=== PATIENT | female | born 2000 ===

== ENCOUNTER 2021-12-07 22:03 | Inpatient (IN) | payer BC ==
[2021-12-07] MEDS ORDERED: Carboprost Tromethamine 250 MCG/1 ML Amp IM PRN (23:10)
[2021-12-07] MEDS ORDERED: Terbutaline 1 MG/ML SDV SUBCUT PRN (23:10)
[2021-12-07] MEDS ORDERED: Water For Irrigation,Sterile 1,000 ML Container IRR PRN (23:10)
[2021-12-07] MEDS ORDERED: Tranexamic Acid 1,000 MG in Sodium Chloride 0.9% 100 ML IV PRN (23:10)
[2021-12-07] MEDS ORDERED: Lidocaine 1% 50 ML MDV INJECT PRN (23:10)
[2021-12-07] MEDS ORDERED: Ondansetron 4 MG/2 ML SDV IVPUSH PRN (23:10)
[2021-12-07] MEDS ORDERED: Butorphanol 1 MG/ML SDV IVPUSH PRN (23:10)
[2021-12-07] MEDS ORDERED: Methylergonovine 0.2 MG/1 ML Amp IM PRN (23:10)
[2021-12-07] MEDS ORDERED: Sodium Chloride 0.9% 20 ML SDV IV PRN (23:10)
[2021-12-07] MEDS ORDERED: Sodium Chloride 0.9% 10 ML Syringe FLUSH PRN (23:10)
[2021-12-07] MEDS ORDERED: Misoprostol 200 MCG Tab PO PRN (23:10)
[2021-12-07] MEDS ORDERED: Sodium Chloride 0.9% 2.5 ML Syringe FLUSH PRN (23:10)
[2021-12-07] MEDS ORDERED: Lactated Ringers 1,000 ML IV SCH (23:15)
[2021-12-07] MEDS ORDERED: Oxytocin/0.9 % Sodium Chloride 30 UNIT/500 ML BAG IV SCH ×2 (23:15)
[2021-12-08 02:16] LABS: CARBON DIOXIDE,CO2 20.9 mmol/L (21.0-32.0); POTASSIUM,K 4.4 mmol/L (3.5-5.1)
[2021-12-08] MEDS ORDERED: Lanolin 100% Cream 7 GM Tube TOP PRN (04:22)
[2021-12-08] MEDS ORDERED: Acetaminophen 500 MG Tab PO PRN ×2 (04:22)
[2021-12-08] MEDS ORDERED: Witch Hazel Medicated Pads 40/Jar TOP PRN (04:22)
[2021-12-08] MEDS ORDERED: Docusate Sodium 100 MG Cap PO PRN (04:22)
[2021-12-08] MEDS ORDERED: oxyCODONE 5 MG Tab PO PRN (04:22)
[2021-12-08] MEDS ORDERED: Ibuprofen 400 MG Tab PO PRN (04:22)
[2021-12-08] MEDS ORDERED: Bisacodyl 10 MG Supp RECTAL PRN (04:22)
[2021-12-08] MEDS ORDERED: Benzocaine/Menthol 20%-0.5% Spray 78 GM Cannister TOP PRN (04:22)
[2021-12-08] MEDS: Ibuprofen 800 MG Tab PO PRN ×3 (06:10→20:33)
[2021-12-08] MEDS ORDERED: Insulin Regular in 0.9 % NACL 100 ML IV SCH (21:02)
[2021-12-08] MEDS ORDERED: Dextrose 5%-Lactated Ringers 1,000 ML IV SCH (21:15)
[2021-12-09] MEDS: Ibuprofen 800 MG Tab PO PRN (05:48)
[2021-12-09 07:55] LABS: CARBON DIOXIDE,CO2 25.3 mmol/L (21.0-32.0); POTASSIUM,K 4.4 mmol/L (3.5-5.1)
== END 2021-12-09 13:00 | disposition home or self-care (01) | DRG 560 ==
LOC: MW.OBCHECK 22:03 → MW.OB 22:08 → MW.OBCHECK 23:10 → MW.OB 23:11 → OBSVTOIN 12-08 03:39
PROVIDERS: ADMIT Obstetrics & Gynecology; ATTEND Obstetrics & Gynecology
PROC: 10E0XZZ Delivery of Products of Conception, External Approach (ICD-10-PCS; principal; 2021-12-08)
PROC: 10907ZC Drainage of Amniotic Fluid, Therapeutic from Products of Conception, Via Natural or Artificial Opening (ICD-10-PCS; 2021-12-08)
PROC: 0HQ9XZZ Repair Perineum Skin, External Approach (ICD-10-PCS; 2021-12-08)
DX: O99.334 Smoking (tobacco) complicating childbirth (principal); O98.52 Other viral diseases complicating childbirth; O70.0 First degree perineal laceration during delivery; U07.1 COVID-19; F17.210 Nicotine dependence, cigarettes, uncomplicated; Z3A.39 39 weeks gestation of pregnancy; Z37.0 Single live birth; Z79.899 Other long term (current) drug therapy; O71.82 Other specified trauma to perineum and vulva
CPT/HCPCS: 36415; 59025; 59409; 80053; 80305-QW; 82570; 82803; 84156; 85027; 86592; 86850; 86900; 86901; A9270-GY; J2001; J2590; J7120; U0002